=== PATIENT | female | born 1995 | race Caucasian/White ===

== ENCOUNTER 2021-10-06 19:34 | Emergency (ER) | payer OTHER, MEDICAID, SELFPAY ==
[2021-10-06 19:35] VITALS: BP 109/69; PULSE 135; RESP 16; TEMP 37.6; O2SAT 99; BMI 33.6
--- NOTE | 2021-10-06 20:07 | EDS_ITS ---
HPI HPI - Female History of Present Illness Chief Complaint: Informant: patient and spouse/S.O. Associated Symptoms P: 2 Ab: 1 Narrative Narrative: G4, P2 12-week gestation by ultrasound presents with lower pelvic cramping throughout the day. No vaginal bleeding or any abnormal discharge. No urinary symptoms. No nausea or vomiting currently. States gets morning sickness. Denies alcohol, tobacco, or recreational drug use. She has chronic migraines 6 and Benadryl earlier today for headache and subsiding. Did not have any Tylenol to take. She follows Dr. Cannon up in [place]. This was her previous OB who moved. Prior similar symptoms: Yes PFSH PFSH Medical History no medical history Home Medications [id number] 400 mcg-om3 35 mg-dha 25 mg-epa 5 mg-fish oil chewable tablet 1 tab PO DAILY 10/06/21 [History Last Taken Unknown] Allergy/AdvReac Type Severity Reaction Status Date / Time No Known Allergies Allergy Verified 10/06/21 19:36 Surgical History no surgical history Social History Smoking Status: Never smoker ROS ROS ED Constitutional Constitutional ED: Denies chills, fever(s) or sweats Eyes Eyes: Denies change in vision ENT ENT ED: Denies dysphagia or sore throat Cardiovascular Cardiovascular: Denies chest pain, leg edema, palpitations or racing heartbeat Respiratory/Chest Respiratory/Chest: Denies cough, dyspnea or dyspnea on exertion Gastrointestinal Gastrointestinal: Reports other Details: Pelvic cramping ; Denies diarrhea, nausea or vomiting Genitourinary Genitourinary ED: Denies dysuria, hematuria or urinary frequency Musculoskeletal Musculoskeletal: Denies back pain, extremity pain or neck pain Integumentary Denies rash or wounds Neurologic Neurologic: Denies headache(s), paresthesias or weakness EXAM Physical Exam Const Vital Signs: 10/06/21 19:35 10/06/21 22:03 Temperature 99.6 F H Temperature Source Temporal Pulse Rate 135 H Respiratory Rate 16 18 Blood Pressure 109/69 Blood Pressure Mean 82 Pulse Ox 99 Oxygen Delivery Method Room Air Positive well nourished and well developed General Appearance ED: well developed and NAD HEENT Reports moist mucous membranes normocephalic and atraumatic Eyes PERRL, EOMs intact bilaterally and conjunctivae normal General Eye ED: Yes normal appearance of both eyes Neck no lymphadenopathy and supple General: Negative for tenderness Chest Wall Chest: Negative for tenderness Resp normal respiratory effort and normal air movement Effort and Inspection: symmetric chest movement; Negative for respiratory distress Cardio regular rhythm and no murmurs Rate: tachycardic and other Other Details: Heart rate 120 during my exam. Peripheral Pulses: pulses 2+ throughout GI normal to inspection, nondistended, normoactive bowel sounds and non-tender GI Narrative: Suprapubic tenderness without guarding or rebound. Palpation: Negative for guarding or rebound tenderness present Back/Spine no CVA tenderness and no thoracic nor lumbar tenderness Extremity normal to inspection General Extremety ED: Negative for edema or tenderness General Extremity: Negative for edema Neuro oriented x3 and no sensory deficits noted Sensorium / Orientation: awake and alert Skin no rashes or lesions noted and no wounds MDM MDM MDM Narrative Medical decision making narrative: Patient pelvic cramping with no bleeding. She was tachycardic in 130s is 120s on my evaluation. Bedside ultrasound performed by myself with heart tones of 143. This is intrauterine. Urine obtained noting ketones and 100 leukocytes. Urine culture sent. Will hold on antibiotics at this time. She is declining any symptoms. She was treated with Tylenol reevaluation much more improved and comfortable. She will continue this at home she will monitor for any active bleeding she will have pelvic rest. She will call to follow-up with her OB doctor Lab Data Labs: Laboratory Results - last 24 hr 10/06/21 20:20 Urine Color Yellow Urine Clarity Sl. Cloudy Urine pH 8.0 Ur Specific [place] 1.015 Urine Protein Negative Urine Glucose (UA) Normal Urine Ketones 50 H Urine Occult Blood Negative Urine Nitrite Negative Urine Bilirubin Negative Urine Urobilinogen 1 H Ur Leukocyte Esterase 100 H Urine RBC 0 SEEN Urine WBC 0-5 SEEN Ur Squamous Epith Cells 0 SEEN Urine Bacteria RARE Urine Mucus 0 SEEN Discharge Plan Triage Chief Complaint: ED Provider: Konrad Pat Dx/Rx/DC Orders Clinical Impression: First trimester , Pelvic cramping Instructions: First Trimester, ED Pelvic Pain, Unknown Cause Prescriptions: No Action Gummy 400 mcg-35 mg -25 mg-5 mg Tablet,Chewable 1 tab PO DAILY Primary Care Provider: Care Physician,No Primary Referrals: Care Physician,No Primary [Primary Care Provider] - Activity Restrictions/Additional Instructions: Pelvic rest monitor for any bleeding. heart tones 143. Use Tylenol as needed. Follow-up with your OB. Disposition Disposition: Home, Self Care Discharge Date/Time: 10/06/21 22:03
[2021-10-06 20:24] LABS: Mucous, Urine 0 SEEN /hpf (<or=2+); Red Blood Cells-Urine 0 SEEN /hpf (0-5); Squamous Epithelial Cells - UA 0 SEEN /hpf (5-10)
[2021-10-06] MEDS: Acetaminophen 500 MG Tablet 1000 MG PO (20:28)
[2021-10-06 21:14] LABS: Color, Urine Yellow (Yellow); Glucose, Dipstick Normal (Normal); Ketone-Dipstick 50 mg/dl (Negative); Leukocyte Esterase-Dipstick 100 /ul (Negative); Nitrite-Dipstick Negative (Negative); Occult Blood-Urine Negative /ul (Negative); Protein-Dipstick Negative (Negative); Specific Gravity, Urine 1.015 (1.002-1.030); Urine Bilirubin Dipstick Negative (Negative); Urine Clarity Sl. Cloudy (Clear); Urine Urobilinogen 1 mg/dl (Normal)
[2021-10-06 21:29] LABS: Bacteria RARE /hpf (None Seen); White Blood Cells 0-5 SEEN /hpf (0-5)
[2021-10-06 22:03] VITALS: RESP 18
== END 2021-10-06 22:03 | disposition home or self-care (01) ==
PROVIDERS: Emergency Provider Emergency Medicine; Visit Provider Emergency Medicine
DX: O26.891 Other specified pregnancy related conditions, first trimester (principal); R10.2 Pelvic and perineal pain; Z3A.12 12 weeks gestation of pregnancy
CPT/HCPCS: 81001; 87086; 87088; 99283